=== PATIENT | male | born 1970 | race Caucasian/White ===

== ENCOUNTER 2018-05-04 13:42 | Emergency (ER) | payer MEDICAID, OTHER ==
[~2018-05-04] VITALS: Ht 180.3 cm; Wt 87.0 kg
[~2018-05-04 13:42] MED LIST: BP MEDS; CEFT600V IV; HYDROCHLOROTHIAZIDE PO; LISI-170 PO; METF500T PO; NICO-487 TD
[2018-05-04 14:02] VITALS: BP 150/98
[2018-05-04 15:22] LABS: BASOPHILS # (AUTO) 0.05 x10^3/uL (0-0.1); BASOPHILS % (AUTO) 1 % (0-1); EOSINOPHILS # (AUTO) 0.13 x10^3/uL (0-0.4); EOSINOPHILS % (AUTO) 2 % (1-7); LYMPHOCYTES # (AUTO) 1.32 x10^3/uL (1-3.4); LYMPHOCYTES % (AUTO) 15 % (22-44); MD NO; MEAN CORPUSCULAR HEMOGLOBIN 31.4 pg (27.5-34.5); MEAN CORPUSCULAR HGB CONC 33.9 g/dL (33.2-36.2); MEAN CORPUSCULAR VOLUME 92.6 fL (81-97); MONOCYTES # (AUTO) 0.54 x10^3/uL (0.2-0.8); MONOCYTES % (AUTO) 6 % (2-9); NEUTROPHILS # (AUTO) 6.52 x10^3/uL (1.8-6.8); NEUTROPHILS % (AUTO) 76 % (42-75); PLATELET COUNT 307 x10^3/uL (130-400); RED BLOOD COUNT 5.21 x10^6/uL (4.38-5.82); RED CELL DISTRIBUTION WIDTH 14.1 % (9.4-14.8)
[2018-05-04 16:12] LABS: HCT (SEDRATE) 48.2 % (39.2-51.8)
[2018-05-05] MEDS ORDERED: METF500T5 PO (15:43)
== END 2018-05-04 17:56 | disposition home or self-care (01) ==
LOC: ED 17:15
DX: M79.672 Pain in left foot (principal); I10 Essential (primary) hypertension
CPT/HCPCS: 36415; 85025; 85651; 86141; 99285

== ENCOUNTER 2018-05-05 13:36 | Emergency (ER) | payer MEDICAID ==
[~2018-05-05] VITALS: Ht 180.3 cm; Wt 87.7 kg
[2018-05-05] MEDS ORDERED: LIDOCAINE-MPF 1%, 5ML INFIL ONE (14:30)
[2018-05-05] MEDS ORDERED: SODIUM CHLORIDE FLUSH 10ML SYR IVF ONE (14:30)
[2018-05-05 14:35] VITALS: BP 146/87
[2018-05-05] MEDS ORDERED: LIDOCAINE-MPF 1%, 5ML ONE (14:41)
[2018-05-05] MEDS ORDERED: GADOBUTROL 10 MMOL/10 ML PFS ONE (15:13)
[2018-05-05] MEDS ORDERED: METF500T5 PO (15:43)
== END 2018-05-05 16:59 | disposition home or self-care (01) ==
LOC: ED 16:53
DX: L03.032 Cellulitis of left toe (principal); I10 Essential (primary) hypertension; F17.210 Nicotine dependence, cigarettes, uncomplicated; E11.9 Type 2 diabetes mellitus without complications
CPT/HCPCS: 10060; 73720; 87070; 87077; 87186; 87205; 99285; A9585